=== PATIENT | female | born 1950 | race African-American/Black ===

== ENCOUNTER 2017-05-25 23:17 | Emergency (ER) | payer MEDICARE, OTHER ==
[~2017-05-25] VITALS: Ht 162.6 cm; Wt 82.0 kg
[~2017-05-25 23:17] MED LIST: AMLO5TAB96 PO; BYST10TA2 PO; DICY10 PO; DIOV80TA4 PO; HYDR-2768 PO; OMEP20CA5 PO; REST15CA PO
[2017-05-25 23:18] VITALS: BP 176/91; PULSE 78; RESP 16; TEMP 98.4; O2SAT 99
[2017-05-26] MEDS ORDERED: HYDR25TA5 PO (01:03)
[2017-05-26] MEDS ORDERED: LISI-519 PO (01:03)
--- NOTE | 2017-05-26 01:04 | PD ---
HPI Chief Complaint: Eye Problems/Injury Time Seen by Provider: 01:00 Travel History International Travel<30 days: No Contact w/Intl Traveler<30days: No Traveled to known affect area: No History of Present Illness HPI This is a 66-year-old female with history of hypertension, presents today with points of right irritation. She states this when she woke up and felt irritated like she scratched. She says over the day got red and has had tearing. She denies any visual loss. She does state that it's blurry because of the tearing and irritation. There are no other complaints time my examination. PFSH Past Medical History Arthritis: Yes Blood Disorders: No Cancer: No Cardiovascular Problems: Yes (HTN, ) Diabetes: No Diminished Hearing: No Endocrine: No Gastrointestinal Disorders: Yes GERD: Yes Glaucoma: No Genitourinary: No Hepatitis: No Hiatal Hernia: No Hypertension: Yes Immune Disorder: No Musculoskeletal: Yes Neurologic: No Psychiatric: No Reproductive: No Respiratory: No Integumentary: Yes (SKIN INFECTION LEFT HAND, SECOND DIGIT) Thyroid Disease: No ?: Not Menopausal: Yes Past Surgical History Abdominal Surgery: Yes (GASTRIC BYPASS 09/01) Oral Surgery: Yes (EGD) Pacemaker: No Other Surgery: Yes Social History Alcohol Use: No Tobacco Use: No Substance Use: No Allergies-Medications (Allergen,Severity, Reaction): Coded Allergies: Aspirin (Verified Allergy, Intermediate, ELEVATES HER BLOOD PRESSURE, 20/08) Reported Meds & Prescriptions Reported Meds & Active Scripts Active Polymyxin B-Trimethoprim Opth Drops 10,000-0.1 Unit/Ml-% Soln 1 Drop RIGHT EYE Q6HR 7 Days Reported Lisinopril 5 Mg Tab 5 Mg PO DAILY Hydrochlorothiazide 25 Mg Tab 25 Mg PO DAILY Review of Systems Except as stated in HPI: all other systems reviewed are Neg General / Constitutional: No: Fever, Chills Eyes: Positive: Drainage (right eye), Redness (right eye), Tearing, No: Blurred Vision, Blind Spots, Blindness HENT: No: Headaches, Neck Pain Cardiovascular: No: Chest Pain or Discomfort, Palpitations Neurologic: No: Weakness, Dizziness, Headache Physical Exam Narrative GENERAL: Well developed well-nourished female in no obvious respiratory distress. The patient has obvious red irritated appearing I. SKIN: Focused skin assessment warm/dry. HEAD: Atraumatic. Normocephalic. EYES: Eye with conjunctival irritation. There is tearing. There is no purulent discharge. Pupil is reactive. Left eye appears within normal limits. Visual acuity was 20/30 on the left eye and 20/50 on the right eye. On fluorescein staining, the right thigh has no uptake. No evidence of corneal abrasion noted. ENT: No nasal bleeding or discharge. Mucous membranes pink and moist. NECK: Trachea midline. No JVD. CARDIOVASCULAR: Regular rate and rhythm. No murmur appreciated. RESPIRATORY: No accessory muscle use. Clear to auscultation. Breath sounds equal bilaterally. NEUROLOGICAL: Awake and alert. No obvious cranial nerve deficits. Motor grossly within normal limits. Normal speech. Data Data Last Documented VS Vital Signs Date Time Temp Pulse Resp B/P Pulse Ox O2 Delivery O2 Flow Rate FiO2 05/26/17 01:11 174/87 05/26/17 00:58 18 05/25/17 23:18 98.4 78 99 Room Air Orders Polymyxin/Trimethop Opht Soln (Polytrim (05/26/17 01:30) MDM Medical Decision Making Medical Screen Exam Complete: Yes Emergency Medical Condition: Yes Differential Diagnosis Corneal Abrasion versus conjunctivitis versus blepharitis Narrative Course 66-year-old female presents with right eye irritation and redness. The patient has tearing. She states that she felt as though she scratched her eye. She does report that she was working on a glue gun earlier today and wash her hands well but was concerned maybe she got chemicals in her eye. She does have conjunctival irritation. There is no evidence of uptake. There is no obvious foreign body noted. She'll be treated with sulfacetamide 10% solution. She is instructed to use 1 drop in the right eye every 3-6 hours 5 days. She is instructed to follow up with fiberglass tube molder if her eye gets worse. Diagnosis Primary Impression: Conjunctivitis, right eye Referrals: Orquidea Steve MD Additional Instructions: Follow up with fiberglass tube molder if eye gets worse. Med/Other Pt SpecificInfo: Prescription(s) given Scripts Polymyxin B-Trimethoprim Opth Drops 10,000-0.1 Unit/Ml-% Soln1 Drop RIGHT EYE Q6HR 7 Days Ref 0 Prov:Rock Rodrigues MD 05/26/17 Disposition: 01 DISCHARGE HOME Condition: Stable Rock Rodrigues MD May 26, 2017 01:04
[2017-05-26] MEDS ORDERED: SULF1SOL4 RIGHT EYE (01:07)
[2017-05-26 01:11] VITALS: BP 174/87
[2017-05-26] MEDS ORDERED: TRIMSOL RIGHT EYE (01:25)
[2017-05-26] MEDS ORDERED: POLYMYXIN/TRIMETHOPRIM OPHT SOLN 10 ML BTL RIGHT EYE ONE (01:30)
== END 2017-05-26 01:49 | disposition home or self-care (01) ==
LOC: NEPE 23:17
DX: H10.9 Unspecified conjunctivitis (principal); M13.88 Other specified arthritis, other site; I10 Essential (primary) hypertension; K21.9 Gastro-esophageal reflux disease without esophagitis; Z79.899 Other long term (current) drug therapy; Z88.6 Allergy status to analgesic agent
CPT/HCPCS: 99283